=== PATIENT | male | born 1955 | race American Indian/Alaskan Native ===

== ENCOUNTER 2017-10-03 09:49 | Emergency (ER) | payer MEDICAID ==
--- NOTE | 2017-10-03 10:54 | Emergency Department Report ---
Chief Complaint: Back Pain/Injury Stated Complaint: BACK PAIN/FALL Time Seen by Provider: 10/03/17 10:35 - HPI History of Present Illness: 62-year-old -[place] male presents to the emergency department complaint of low back pain, across the entire back, this been going on since he had a fall early this morning. He says that he caught himself mostly with his knees and therefore did not hit his head but he started having this low back pain. He does have a history of previous back pain issues including some type of spinal surgery. He denies any numbness or paresthesias, problems with bowel or bladder or any neurological deficits. He did not take anything for his symptoms prior to presentation. - ROS Review of Systems: Positive for back pain Negative for numbness, paresthesias, problems with bowel or bladder - Exam Vital Signs: Vital Signs 10/03/17 09:51 Temperature 98.5 F Pulse Rate 105 H Respiratory 22 Rate Blood Pressure 105/70 O2 Sat by Pulse 100 Oximetry Physical Exam: Patient has some midline and bilateral paraspinal tenderness palpation along the lumbar back. Heart and lungs are normal to auscultation. MSE screening note: Focused history and physical exam performed. Due to findings the following was ordered: The patient will have a x-ray of the lumbar spine and sacrum and will need something for discomfort. ED Disposition for MSE Condition: Stable Referrals: PRIMARY CARE, [Primary Care Provider] - 3-5 Days
--- NOTE | 2017-10-03 11:22 | Emergency Department Report ---
ED Back Pain/Injury HPI - General Chief Complaint: Back Pain/Injury Stated Complaint: BACK PAIN/FALL Time Seen by Provider: 10/03/17 10:35 Source: patient, family Limitations: No Limitations - History of Present Illness Initial Comments: 62-year-old -[place] male presents to the emergency department complaint of low back pain, across the entire back, this been going on since he had a fall early this morning. He says that he caught himself mostly with his knees and therefore did not hit his head but he started having this low back pain. He does have a history of previous back pain issues including some type of spinal surgery 2016. Patient also reports that he fell last year and injured his back but he did not seek medical care as he was going on a cruise his family. He denies any numbness or paresthesias, problems with bowel or bladder or any neurological deficits. He did not take anything for his symptoms prior to presentation. Pain is worse walking and no alleviating factors. Pain is 9 out of 10 and achy. Denies any loss of bowel or bladder function . He says the fall was accidental because he takes trazodone. MD Complaint: back pain, back injury, fall -: This morning Similar Symptoms Previously: Yes Place: other ([facility]) Radiation: none Severity: severe Severity scale (0 -10): 9 Quality: aching Consistency: constant Improves With: none Worsens With: movement, walking Context: fall, other (patient with chronic back pain) Associated Symptoms: denies: confusion, weakness, chest pain, numbness, difficulty walking, cough, difficulty urinating, diaphoresis, incontinence, fever/chills, constipation, headaches, abdominal pain, loss of appetite, malaise , nausea/vomiting, rash, seizure, shortness of breath, syncope Treatments Prior to Arrival: other (none) - Related Data Previous Rx's Medication Instructions Recorded Last Taken Type traMADol [Ultram 50 MG tab] 50 mg PO Q6HR PRN #20 tablet 10/03/17 Unknown Rx Allergies Allergy/AdvReac Type Severity Reaction Status Date / Time No Known Allergies Allergy Unverified 10/03/17 09:51 ED Review of Systems ROS: Stated complaint: BACK PAIN/FALL Other details as noted in HPI Constitutional: denies: chills, fever Eyes: denies: eye pain, eye discharge, vision change ENT: denies: ear pain, throat pain, hearing loss Respiratory: denies: cough, shortness of breath, SOB with exertion, SOB at rest , stridor, wheezing Cardiovascular: denies: chest pain, palpitations, edema, syncope Gastrointestinal: denies: abdominal pain, nausea, vomiting, diarrhea, constipation, hematemesis, melena, hematochezia Genitourinary: denies: urgency, dysuria, frequency, hematuria, discharge, testicular pain, testicular mass Musculoskeletal: back pain. denies: joint swelling, arthralgia, myalgia Skin: denies: rash, lesions Neurological: denies: headache, weakness, numbness, paresthesias, confusion, abnormal gait, vertigo ED Past Medical Hx - Past Medical History Previous Medical History?: Yes Additional medical history: Chronic back pain - Surgical History Past Surgical History?: Yes Additional Surgical History: Back, rotator cuff - Family History Family history: hypertension - Social History Smoking Status: Current Every Day Smoker Substance Use Type: None - Medications Home Medications: Home Medications Medication Instructions Recorded Confirmed Last Taken Type traMADol [Ultram 50 MG tab] 50 mg PO Q6HR PRN #20 tablet 10/03/17 Unknown Rx ED Physical Exam - General Limitations: No Limitations General appearance: alert, in no apparent distress - Head Head exam: Present: atraumatic, normocephalic, normal inspection, other (normal exam) - Eye Eye exam: Present: normal appearance, PERRL, EOMI. Absent: conjunctival injection, periorbital swelling, periorbital tenderness Pupils: Present: normal accommodation - ENT ENT exam: Present: normal exam, normal orophraynx, mucous membranes moist, TM's normal bilaterally, normal external ear exam - Neck Neck exam: Present: normal inspection, full ROM, other (no C-spine tenderness). Absent: tenderness, meningismus, lymphadenopathy - Respiratory Respiratory exam: Present: normal lung sounds bilaterally. Absent: respiratory distress, chest wall tenderness - Cardiovascular Cardiovascular Exam: Present: regular rate, normal rhythm, normal heart sounds. Absent: systolic murmur, diastolic murmur - GI/Abdominal GI/Abdominal exam: Present: soft, normal bowel sounds. Absent: distended, tenderness, guarding, rebound, rigid, organomegaly, mass, bruit, pulsatile mass - Extremities Exam Extremities exam: Present: normal inspection, full ROM, normal capillary refill , other (ambulates without any difficulties). Absent: tenderness, pedal edema, joint swelling, calf tenderness - Back Exam Back exam: Present: normal inspection, full ROM, CVA tenderness (L), vertebral tenderness. Absent: tenderness, CVA tenderness (R), muscle spasm, paraspinal tenderness - Expanded Back Exam Expanded Back exam: Absent: saddle anesthesia Back exam: Negative Straight Leg Raising: Left, Right - Neurological Exam Neurological exam: Present: alert, oriented X3, normal gait, reflexes normal. Absent: motor sensory deficit - Expanded Neurological Exam Expanded Neurological exam: Absent: innattentive, memory loss-remote event, memory loss- recent event, ataxia, receptive aphasia, expressive aphasia, total aphasia, tremor, protecting the airway Patient oriented to: Present: person, place, time Speech: Present: fluid speech Cranial nerves: EOM's Intact: Normal, Gag Reflex: Normal, Tongue Deviation: Normal, Nystagmus: Normal, Facial Sensation: Normal Cerebellar function: Romberg: Normal Upper motor neuron: Pronator Drift: Normal, Sensory Extinction: Normal Sensory exam: Upper Extremity Light Touch: Normal, Upper Extremity Temperature: Normal, UE 2 Point Discrimination: Normal, Lower Extremity Light Touch: Normal, Lower Extremity Temperature: Normal, LE 2 Point Discrimination: Normal Motor strength exam: RUE: 5, LUE: 5, RLE: 5, LLE: 5 Best Eye Response ([place]): (4) open spontaneously Best Motor Response ([place]): (6) obeys commands Best Verbal Response ([place]): (5) oriented Royal Total: 15 - Psychiatric Psychiatric exam: Present: normal affect, normal mood - Skin Skin exam: Present: warm, dry, intact, normal color. Absent: rash ED Course Vital Signs 10/03/17 10/03/17 10/03/17 09:51 11:44 14:16 Temperature 98.5 F Pulse Rate 105 H 92 H Respiratory 22 22 Rate Blood Pressure 105/70 O2 Sat by Pulse 100 Oximetry - Reevaluation(s) Reevaluation #1: 10/03/17 14:22 Patient received hydrocodone 5/325 2 tablets by mouth in emergency room for back pain and Toradol 6 mg IM Reevaluation #2: 10/03/17 14:33 Patient reported that his pain is better after [place] and Toradol. He said he cannot take Motrin because he has a history of ulcer. ED Medical Decision Making - Radiology Data Radiology results: report reviewed X-rays lumbar spine done and dictated by radiologist. Report reviewed by self. Patient with age indeterminate compression fractures of T12 and L2 Patient: BRE HONG MR#: [id number] : 1955 Acct:[id number] Age/Sex: 62 / M ADM Date: 10/03/17 Loc: ED Attending Dr: Ordering Physician: MELISSA JUDD DO Date of Service: 10/03/17 Procedure(s): XR spine lumbosacral 2-3V Accession Number(s): [id number] cc: MELISSA JUDD DO Fluoro Time In Minutes: FINAL REPORT EXAM: XR L-SPINE CLINICAL INDICATIONS: fall, back pain, hx of spinal surgery FINDINGS: AP, lateral views of the lumbar spine were acquired as well as coned down lateral view of L5-S1. There is anterior loss of height of T12 and L2. No prior study is available for comparison. CT may be considered for further evaluation. There are intrapedicular screws and L1, L2 and L3. There is anterior endplate remodeling at L4-L5. IMPRESSION: AGE-INDETERMINATE COMPRESSION FRACTURES OF T12 AND L2 Transcribed By: LOUISE Dictated By: ROBERT COTTO MD Electronically Authenticated By: ROBERT COTTO MD Signed Date/Time: 10/03/17 135 DD/ 135 TD/TT: 10/03/17 1350 - Medical Decision Making For a male he reports that he fell at 2 AM this morning. He said these at [facility] for rehabilitation and he did trazodone the things the trazodone made him fall. Report ground-level fall and he said he catches followed that he has back pain now. Patient's reporting that he has chronic back pain and had to back surgery last year and also fell last year after back surgery without any follow-up. He does not orthopedic doctor. Patient with new fall with complaint of back pain and is here to be evaluated. Patient was screened by Dr. Judd in order . Patient examined by myself he is neurologically intact, back exam is normal without any paraspinal or vertebral tenderness. Old scar noted to lumbar and thoracic vertebrae area and patient reports that he had surgery 3 today his back last year. X-ray reported lumbar spine shows patient with anterior loss of height of T12 and L2. No prior study is available for comparison. CT may be considered for further evaluation. There are intrapedicular screws and L1, L2 and L3. There is anterior endplate remodeling at L4-L5. AGE-INDETERMINATE COMPRESSION FRACTURES OF T12 AND L2 . I explain x-ray results patient's any voices understanding and knows he needs to follow-up with orthopedic doctor to call tomorrow to schedule an appointment. Patient was given Toradol 60 mg IM and [place] 5/325 2 tablets. Emergency room which relieved this pain. Patient was understanding of discharge instruction and discharged back to [facility] Patient with acute exacerbation of chronic back pain -he was given [place] and Toradol which relieved this pain. will be sent home on Ultram. 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 He voiced understanding and that he needs to understanding that he needs to follow-up with Dr. Ching regarding in chronic back pain and findings on x-ray. I explained in detail his x-ray or results. Discharged home back to [facility] in stable condition. Vital signs are stable he is afebrile and pain is controlled - Differential Diagnosis fracture versus subluxation, lumbar strain, exacerbation chronic back pain Critical care attestation.: If time is entered above; I have spent that time in minutes in the direct care of this critically ill patient, excluding procedure time. ED Disposition Clinical Impression: Acute exacerbation of chronic low back pain Accidental fall Qualifiers: Encounter type: initial encounter Qualified Code(s): W19.XXXA - Unspecified fall, initial encounter Disposition: TO HOME OR SELFCARE Is pt being admited?: No Does the pt Need Aspirin: No Condition: Stable Instructions: Back Pain (ED), Fall Prevention (ED) Additional Instructions: Follow-up with Dr. Ching orthopedic doctor in 2 days. Cultures more scheduled appointment Take Ultram for pain but do not drive or operate heavy machinery while taking this medication causes drowsiness see discharge instructions on fall prevention If you develop numbness or tingling anterior extremities, loss of bowel or bladder control, abnormal gait, but is discharged emergency room obvious purulence. Referrals: LES TRISTAN MD [Primary Care Provider] - 10/05/17 ANI CHING MD [Staff Physician] - 10/05/17
[2017-10-03] MEDS ORDERED: NORCO 5/325 PO ONE (11:37)
[2017-10-03] MEDS ORDERED: TORADOL IM ONE (11:37)
--- NOTE | 2017-10-03 13:56 | XRay Report ---
FINAL REPORT EXAM: XR L-SPINE CLINICAL INDICATIONS: fall, back pain, hx of spinal surgery FINDINGS: AP, lateral views of the lumbar spine were acquired as well as coned down lateral view of L5-S1. There is anterior loss of height of T12 and L2. No prior study is available for comparison. CT may be considered for further evaluation. There are intrapedicular screws and L1, L2 and L3. There is anterior endplate remodeling at L4-L5. IMPRESSION: AGE-INDETERMINATE COMPRESSION FRACTURES OF T12 AND L2
[2017-10-03 14:47] VITALS: BP 111/70
== END 2017-10-03 14:47 | disposition home or self-care (01) ==
LOC: ED 09:49
DX: G89.29 Other chronic pain (principal); M54.5 Low back pain; F17.200 Nicotine dependence, unspecified, uncomplicated; W18.30XA Fall on same level, unspecified, initial encounter; Y93.89 Activity, other specified; Y92.89 Other specified places as the place of occurrence of the external cause; Y99.8 Other external cause status
CPT/HCPCS: 72100; 96372; 99283; J1885

== ENCOUNTER 2017-10-07 13:01 | Emergency (ER) | payer MEDICAID ==
--- NOTE | 2017-10-07 22:28 | Emergency Department Report ---
- General Chief complaint: Skin Rash Stated complaint: RASH Time Seen by Provider: 10/07/17 21:39 Source: patient Mode of arrival: Ambulatory Limitations: No Limitations - History of Present Illness Initial comments: This 62-year-old male nontoxic on appearance with no signs of distress presents to the ER complaining of acute on chronic "skin infection". Patient stated that he has a skin disease that is unknown and has follow-up with a button breaker which he kept Bactrim and steroids. Patient stated last dose of Bactrim and steroids was March 2017. Patient denies any itching, fever, chills, boils, chest pain, shortness of breath, numbness, tingling, headache, stiff neck, abdominal pain. Patient denies any allergies. Past medical history does include chronic back pain, skin disease, and rotator cuff. Tetanus Up to Date: yes Location: generalized Severity: mild Severity scale (0 -10): 0 Improves with: none Worsens with: none Context: none Associated symptoms: denies other symptoms Treatments Prior to Arrival: none - Related Data Previous Rx's Medication Instructions Recorded Last Taken Type traMADol [Ultram 50 MG tab] 50 mg PO Q6HR PRN #20 tablet 10/03/17 Unknown Rx Prednisone [predniSONE 10 mg 10 mg PO .TAPER #1 tab.ds.pk 10/07/17 Unknown Rx (6-Day Pack, 21 Tabs)] Sulfamethoxazole/Trimethoprim 1 each PO BID #14 tablet 10/07/17 Unknown Rx [Bactrim DS TAB] Allergies Allergy/AdvReac Type Severity Reaction Status Date / Time No Known Allergies Allergy Unverified 10/03/17 09:51 Abscess Boil HPI - HPI Chief Complaint: Skin Rash Stated Complaint: RASH Time Seen by Provider: 10/07/17 21:39 Home Medications: Previous Rx's Medication Instructions Recorded Last Taken Type traMADol [Ultram 50 MG tab] 50 mg PO Q6HR PRN #20 tablet 10/03/17 Unknown Rx Prednisone [predniSONE 10 mg 10 mg PO .TAPER #1 tab.ds.pk 10/07/17 Unknown Rx (6-Day Pack, 21 Tabs)] Sulfamethoxazole/Trimethoprim 1 each PO BID #14 tablet 10/07/17 Unknown Rx [Bactrim DS TAB] Allergies/Adverse Reactions: Allergies Allergy/AdvReac Type Severity Reaction Status Date / Time No Known Allergies Allergy Unverified 10/03/17 09:51 ED Review of Systems ROS: Stated complaint: RASH Other details as noted in HPI Constitutional: denies: chills, fever Eyes: denies: eye pain, eye discharge, vision change ENT: denies: ear pain, throat pain Respiratory: denies: cough, shortness of breath, wheezing Cardiovascular: denies: chest pain, palpitations Endocrine: no symptoms reported Gastrointestinal: denies: abdominal pain, nausea, diarrhea Genitourinary: denies: urgency, dysuria Musculoskeletal: denies: back pain, joint swelling, arthralgia Skin: denies: rash, lesions Neurological: denies: headache, weakness, paresthesias Psychiatric: denies: anxiety, depression Hematological/Lymphatic: denies: easy bleeding, easy bruising ED Past Medical Hx - Past Medical History Previous Medical History?: Yes Additional medical history: Chronic back pain, "skin disease" - Surgical History Past Surgical History?: Yes Additional Surgical History: Back, rotator cuff - Social History Smoking Status: Current Every Day Smoker Substance Use Type: None - Medications Home Medications: Home Medications Medication Instructions Recorded Confirmed Last Taken Type traMADol [Ultram 50 MG tab] 50 mg PO Q6HR PRN #20 tablet 10/03/17 Unknown Rx Prednisone [predniSONE 10 mg 10 mg PO .TAPER #1 tab.ds.pk 10/07/17 Unknown Rx (6-Day Pack, 21 Tabs)] Sulfamethoxazole/Trimethoprim 1 each PO BID #14 tablet 10/07/17 Unknown Rx [Bactrim DS TAB] ED Physical Exam - General Limitations: No Limitations General appearance: alert, in no apparent distress - Head Head exam: Present: atraumatic, normocephalic - Eye Eye exam: Present: normal appearance - ENT ENT exam: Present: mucous membranes moist - Neck Neck exam: Present: normal inspection - Respiratory Respiratory exam: Present: normal lung sounds bilaterally. Absent: respiratory distress - Cardiovascular Cardiovascular Exam: Present: regular rate, normal rhythm. Absent: systolic murmur, diastolic murmur, rubs, gallop - GI/Abdominal GI/Abdominal exam: Present: soft, normal bowel sounds - Rectal Rectal exam: Present: deferred - Extremities Exam Extremities exam: Present: normal inspection - Back Exam Back exam: Present: normal inspection - Neurological Exam Neurological exam: Present: alert, oriented X3 - Psychiatric Psychiatric exam: Present: normal affect, normal mood - Skin Skin exam: Present: warm, dry, intact, normal color, other (No abscess or rash noted. There are several small blisters to bilateral upper arms and legs.). Absent: rash ED Course Vital Signs 10/07/17 13:08 Temperature 98.6 F Pulse Rate 96 H Respiratory 16 Rate Blood Pressure 100/66 O2 Sat by Pulse 99 Oximetry - Reevaluation(s) Reevaluation #1: 10/07/17 22:30 Patient is speaking in full sentences with no signs of distress noted. ED Medical Decision Making - Medical Decision Making Kendal 2-year-old male that presents with concerns about skin infection. Patient stated that he gets small little blisters and received antibiotic. Patient is requesting for prednisone Dosepak and Bactrim as this always absent. Patient vital signs are within normal limits for the patient. No signs of an abscess or cellulitis noted upon examination. I will discharge with Bactrim and prednisone Dosepak. Patient was instructed to Follow-up with a primary care doctor in 3-5 days or if symptoms worsen and continue return to emergency room as soon as possible. At time of discharge, the patient does not seem toxic or ill in appearance. No acute signs of distress noted. Patient agrees to discharge treatment plan of care. No further questions noted by the patient. Critical care attestation.: If time is entered above; I have spent that time in minutes in the direct care of this critically ill patient, excluding procedure time. ED Disposition Clinical Impression: Skin infection Disposition: DC-01 TO HOME OR SELFCARE Is pt being admited?: No Does the pt Need Aspirin: No Condition: Stable Additional Instructions: Follow-up with a primary care/button breaker doctor in 3-5 days or if symptoms worsen and continue return to emergency room as soon as possible. Prescriptions: Prednisone [predniSONE 10 mg (6-Day Pack, 21 Tabs)] 10 mg PO .TAPER #1 tab.ds.pk Sulfamethoxazole/Trimethoprim [Bactrim DS TAB] 1 each PO BID #14 tablet Referrals: PRIMARY MD KUN [Primary Care Provider] - 3-5 Days MARK DUARTE MD [Staff Physician] - 3-5 Days [facility] [Outside] - 3-5 Days [facility] [Outside] - 3-5 Days Forms: Work/School Release Form(ED)
[2017-10-07 23:04] VITALS: BP 108/64
== END 2017-10-07 23:18 | disposition home or self-care (01) ==
LOC: ED 13:01
DX: S40.822A Blister (nonthermal) of left upper arm, initial encounter (principal); S40.821A Blister (nonthermal) of right upper arm, initial encounter; S80.822A Blister (nonthermal), left lower leg, initial encounter; S80.821A Blister (nonthermal), right lower leg, initial encounter; F17.200 Nicotine dependence, unspecified, uncomplicated; X58.XXXA Exposure to other specified factors, initial encounter; Y93.89 Activity, other specified; Y92.89 Other specified places as the place of occurrence of the external cause; Y99.8 Other external cause status
CPT/HCPCS: 99282